=== PATIENT | female | born 1980 | race Caucasian/White ===

== ENCOUNTER 2018-10-25 06:58 | Emergency (ER) | payer SELFPAY ==
[2018-10-25 07:13] VITALS: BP 130/76; PULSE 69; RESP 18; TEMP 37.4; O2SAT 100
--- NOTE | 2018-10-25 07:29 | PC.NURSE ---
Pt pinched what she thought was a pimple on her chin/lower lip and then her lip began to swell up since Thursday. She denies difficulty swallowing, she is able to speak without problems but it is so painful to touch that Ibuprofen and ice aren't helping. She has also noticed something on her lower left eye.
--- NOTE | 2018-10-25 07:41 | ED.SKABFB ---
HPI - Skin/Abscess/Foreign Bdy General Chief complaint: Skin/Abscess/Foreign Body Stated complaint: swelling in lip/eye right side of face Time Seen by Provider: 10/25/18 07:31 Source: patient Mode of arrival: ambulatory Limitations: no limitations History of Present Illness HPI narrative: Patient comes emergency department complaining swelling her right lower lip since popping a pimple 3 days ago. Patient states she has had progressive swelling of her lower lip, but that this morning, she woke up to find that the lip was drastically more swollen and tense. Patient denies any fevers or chills. She states that she does not have any bad teeth that she knows of. No injury. No history of allergies or anaphylaxis. No history of angioedema. Patient states that the pimple area has been draining a little bit as the swelling has increased. Patient denies any other medical problems. She is not a diabetic. No other complaints at this time. Patient states that she does not feel any swelling in her tongue or throat. Related Data Home Medications Medication Instructions Recorded Confirmed ibuprofen 600 mg PO Q6H PRN 10/25/18 10/25/18 Previous Rx's Medication Instructions Recorded hydrocodone-acetaminophen 1 tab PO Q4-6H PRN #10 tab 10/25/18 sulfamethoxazole-trimethoprim 1 tab PO BID #14 tab 10/25/18 [Bactrim DS] Allergies Allergy/AdvReac Type Severity Reaction Status Date / Time No Known Drug Allergies Allergy Verified 10/25/18 07:34 Review of Systems Constitutional Denies chills, Denies fever(s), Denies lethargy and Denies weakness Eyes Denies change in vision, Denies eye discharge, Denies irritation and Denies loss of vision ENT Ears, Nose, Mouth, and Throat: Denies change in voice, Reports lip swelling, Denies neck pain and Denies sore throat Cardiovascular Denies chest pain, Denies irregular heart rhythm, Denies lightheadedness, Denies palpitations, Denies dyspnea, Denies dyspnea on exertion and Denies orthopnea Respiratory Denies cough, Denies dyspnea, Denies dyspnea on exertion and Denies wheezing Gastrointestinal Gastrointestinal: Denies abdominal pain, Denies change in bowel habits, Denies diarrhea, Denies nausea and Denies vomiting Genitourinary Denies hematuria, Denies flank pain, Denies urinary incontinence and Denies urinary urgency Musculoskeletal Denies neck pain Integumentary/Breasts Denies pruritus, Denies erythema, Denies rash and Denies wounds Neurologic Denies confusion, Denies loss of vision and Denies weakness Psychiatric Denies anxiety, Denies confusion, Denies depression, Denies homicidal ideation and Denies suicidal ideation Endocrine Denies palpitations Hematologic/Lymphatic Denies easy bruising Allergic/Immunologic Reports lip swelling and Denies wheezing [facility] Medical History Healthy adult (Acute) Surgical History No pertinent past surgical history (Acute) Social History Smoking Status: Current every day smoker Social History Smoking Status: Current every day smoker Exam Narrative Exam Narrative: Oral exam: Patient's right lower lip is severely edematous with induration and tension of the lip. 3 mm lesion is noted at the vermilion border of the right lower lip, which appears moist, but not actively draining. No focus of fluctuance is noted. Patient has moderate edema extending along the anterior portion of her mandibular body, adjacent to the immediate area of swelling and induration. This area is soft. No facial erythema. There is mild edema of the patient's right face extending up to the lower eyelid. Initial Vital Signs Initial Vital Signs: Vital Signs Temperature 99.3 F 10/25/18 07:13 Pulse Rate 69 10/25/18 07:13 Respiratory Rate 18 10/25/18 07:13 Blood Pressure 130/76 10/25/18 07:13 Pulse Oximetry 100 10/25/18 07:13 Const General: cooperative and well developed Nutritional Appearance: well nourished Orientation: alert, awake, oriented x3 and not confused [facility] Head: normocephalic and atraumatic Ears: external ears normal Nose: external nose normal and No nasal discharge Face and sinus: sinuses nontender and No dry mucous membranes Mouth: oral mucosae normal, moist mucous membranes and lip abnormal (See above.) Teeth and gingiva: dentition normal Throat: tonsils normal and uvula midline Eyes General: appearance normal, both eyes and all related structures Eyelids: eyelids normal Conjunctivae: conjunctivae normal Sclera: sclerae normal Pupils: PERRL EOM: EOM intact bilaterally Neck Neck: normal visual inspection, trachea midline, No lymphadenopathy, No midline deformity and No JVD Lymphatic: No lymphedema Chest Chest: normal inspection of the chest Resp Effort & Inspection: normal respiratory effort, able to speak in complete sentences, no respiratory distress and no use of accessory muscles Back/Spine/Pelvis Cervical Spine: cervical ROM normal Skin General: No erythema, No jaundice and No petechiae Lesions: lesion noted (Right lower lip, as above.) Neuro General: alert, awake, oriented x3, gait normal and no focal motor deficits Speech: speech normal Extrem General: full ROM Psych Appearance: well kempt Mental Status: mental status grossly normal Attitude: cooperative Thought Content: normal and suicidality Judgment: judgment good Course Course Narrative: Patient was given a dose of Bactrim. I ordered an ultrasound to evaluate for possible abscess in her lip. This was done and showed diffuse fluid which could possibly be abscess, but without a distinct cavity. As such, I ordered a CT of the face with contrast to further evaluate this. This was read by the radiologist as looking most like cellulitis with possible early abscess or phlegmon. At this point in time, I did not feel that I and D would be helpful, as there is not a distinct cavity to incise. However, I did speak with Dr. Medley, who is on-call for ENT, as I felt this patient should have some follow-up in an expedited fashion, and Dr. medley stated that the patient could be seen in the ENT clinic here in town either tomorrow or the next day. He did agree with Bactrim for antibiotic coverage, and so patient was given a prescription for this. She was advised of the need to follow up in ENT clinic. She was instructed to call as soon as possible today to set up a follow-up appointment. We have also discussed the usual indications for return. Orders Ordered: ED Orders 10/25/18 07:52 US soft tissue head and neck Stat 10/25/18 09:13 CT facial bones w con Stat Discontinued Medications Hydromorphone HCl (Dilaudid) 0.5 mg IV NOW ONE Stop: 10/25/18 09:11 Last Admin: 10/25/18 09:14 Dose: 0.5 mg Ketorolac Tromethamine (Toradol) 30 mg IV NOW ONE Stop: 08/12/19 08:20 Last Admin: 10/25/18 08:24 Dose: 30 mg Trimethoprim/Sulfamethoxazole (Bactrim Ds) 1 tab PO NOW ONE Stop: 10/25/18 07:54 Last Admin: 10/25/18 08:24 Dose: 1 tab Vital Signs - 8 hr 10/25/18 07:13 10/25/18 10:14 Temperature 99.3 F Pulse Rate 69 53 L Respiratory Rate 18 14 Blood Pressure 130/76 Blood Pressure [Left Arm] 105/49 L Pulse Oximetry 100 97 MDM - Skin/Abscess/Foreign Bdy Medical Records Attestation: I reviewed the patient's medical records. Imaging Data CT face: Radiologist's impression: PROCEDURE: CT FACIAL BONES W CON INDICATIONS: lip abscess TECHNIQUE: After the administration of intravenous contrast, 2.5 mm axial sections acquired from the mid-neck to the frontal sinuses, with coronal and sagittal reformats. For radiation dose reduction, the following was used: automated exposure control, adjustment of mA and/or kV according to patient size. COMPARISON: [facility], , US SOFT TISSUE HEAD AND NECK, 10/25/2018, 7:57. FINDINGS: Image quality: Excellent. Soft tissues: Soft tissue swelling/inflammation involving the lower lip and the anterior/right sofia-mandibular facial soft tissues noted which given patient's history is likely related to infectious cellulitis. Area of low density which is contiguous, irregular peripheral enhancement measuring 1.4 x 1.3 cm is noted in the central and right paramedian lower lip which may represent inflammatory phlegmon/developing abscess. No discrete fluid collection identified in the area of soft tissue swelling/inflammation. 1.1 cm left level I lymph node is noted. Vascular: Visualized vascular structures appear patent throughout. Bony vascular foramina and canals appear normal. Bones: Facial bones appear intact, without fractures, erosions, or destruction. Visualized portions of the skull base and auditory canals also appear normal. Sinuses: Paranasal sinuses are aerated without fluid levels, mucosal thickening, or mucoceles. Mastoid air cells are aerated. IMPRESSION: 1. Lower lip and anterior/right jaw facial soft tissue swelling/inflammation most compatible with infectious cellulitis. 2. Small low density area measuring 1.4 x 1.3 cm in the central right paramedian lower lip may represent inflammatory phlegmon versus developing abscess. 3. No well-formed, drainable abscess identified. 4. Left level I lymph adenopathy likely reactive. Dictated by: Sarah Sullivan MD, PhD on 10/25/2018 at 9:34 Approved by: Sarah Sullivan MD, PhD on 10/25/2018 at 9:40 Ultrasound lip: Radiologist's impression: PROCEDURE: US SOFT TISSUE HEAD AND NECK INDICATIONS: LOWER LIP ABSCESS TECHNIQUE: Real-time scanning was performed of the facial region of interest, in the region of the lower lip, with image documentation. COMPARISON: None. FINDINGS: There is increased vascularity to the region. There is likely a combination of phlegmon and abscess which measures approximately 1.5 x 2.2 cm. IMPRESSION: Cellulitis, probably phlegmon, and abscess, involving the subcutaneous structures of the lower lip region. Comment: CT to follow. Dictated by: Mejia Lopez M.D. on 10/25/2018 at 8:36 Approved by: Mejia Lopez M.D. on 10/25/2018 at 8:39 Discharge Plan Departure Patient Disposition: Home Clinical Impression: Cellulitis of lip Discharge Date/Time: 10/25/18 10:20 Interventions: ED Discharge Assessment Last Done: 10/25/18 10:18 Instructions: DI for Cellulitis -- Adult Activity Restrictions/Additional Instructions: Your ultrasound and CT scan did not show a distinct abscess, or pus collection. However, it is possible that your in the early stages of formation of one, and as such, your case has been discussed with the on-call ENT specialist. They have recommended that we continue the antibiotics that have been started in the emergency department. They would like to see you in their clinic in [place] either tomorrow or the next day for follow-up. Do not squeeze the pimple area anymore. You may apply hot packs to the area to encourage drainage of any pus or fluid that may want to accumulate. If you began to have worsening swelling of the lips, or if you notice any tightness in your throat or tongue, please return to the emergency department. You should call the ENT clinic as soon as you can today. Tell them you were seen in the emergency department and that your case was discussed with Dr. Medley, who would like to have you seen tomorrow or the next day in clinic. Prescriptions: New hydrocodone-acetaminophen 5-325 mg tablet 1 tab PO Q4-6H PRN (Reason: pain) Qty: 10 RF: 0 sulfamethoxazole-trimethoprim [Bactrim DS] 800-160 mg tablet 1 tab PO BID Qty: 14 RF: 0 No Action ibuprofen 200 mg Capsule 600 mg PO Q6H PRN (Reason: Pain (Scale Score 7-10)) RF: 0 Referrals: Clem Guthrie MD [Physician] -
--- NOTE | 2018-10-25 07:52 | DI.US.S_ITS ---
PROCEDURE: US SOFT TISSUE HEAD AND NECK INDICATIONS: LOWER LIP ABSCESS TECHNIQUE: Real-time scanning was performed of the facial region of interest, in the region of the lower lip, with image documentation. COMPARISON: None. FINDINGS: There is increased vascularity to the region. There is likely a combination of phlegmon and abscess which measures approximately 1.5 x 2.2 cm. IMPRESSION: Cellulitis, probably phlegmon, and abscess, involving the subcutaneous structures of the lower lip region. Comment: CT to follow. Dictated by: Mejia Lopez M.D. on 10/25/2018 at 8:36 Approved by: Mejia Lopez M.D. on 10/25/2018 at 8:39
[2018-10-25] MEDS: KETOROLAC 60 MG/2 ML VIAL 30 MG IV (08:24)
[2018-10-25] MEDS: TRIMETH/SULFA 160/800 (DS) TABLET 1 TAB PO (08:24)
--- NOTE | 2018-10-25 09:13 | DI.CT.S_ITS ---
PROCEDURE: CT FACIAL BONES W CON INDICATIONS: lip abscess TECHNIQUE: After the administration of intravenous contrast, 2.5 mm axial sections acquired from the mid-neck to the frontal sinuses, with coronal and sagittal reformats. For radiation dose reduction, the following was used: automated exposure control, adjustment of mA and/or kV according to patient size. COMPARISON: [facility], , US SOFT TISSUE HEAD AND NECK, 10/25/2018, 7:57. FINDINGS: Image quality: Excellent. Soft tissues: Soft tissue swelling/inflammation involving the lower lip and the anterior/right sofia-mandibular facial soft tissues noted which given patient's history is likely related to infectious cellulitis. Area of low density which is contiguous, irregular peripheral enhancement measuring 1.4 x 1.3 cm is noted in the central and right paramedian lower lip which may represent inflammatory phlegmon/developing abscess. No discrete fluid collection identified in the area of soft tissue swelling/inflammation. 1.1 cm left level I lymph node is noted. Vascular: Visualized vascular structures appear patent throughout. Bony vascular foramina and canals appear normal. Bones: Facial bones appear intact, without fractures, erosions, or destruction. Visualized portions of the skull base and auditory canals also appear normal. Sinuses: Paranasal sinuses are aerated without fluid levels, mucosal thickening, or mucoceles. Mastoid air cells are aerated. IMPRESSION: 1. Lower lip and anterior/right jaw facial soft tissue swelling/inflammation most compatible with infectious cellulitis. 2. Small low density area measuring 1.4 x 1.3 cm in the central right paramedian lower lip may represent inflammatory phlegmon versus developing abscess. 3. No well-formed, drainable abscess identified. 4. Left level I lymph adenopathy likely reactive. Dictated by: Sarah Sullivan MD, PhD on 10/25/2018 at 9:34 Approved by: Sarah Sullivan MD, PhD on 10/25/2018 at 9:40
[2018-10-25] MEDS: HYDROMORPHONE 0.5 MG INJ IV (09:14)
[2018-10-25 10:14] VITALS: BP 105/49; PULSE 53; RESP 14; O2SAT 97
== END 2018-10-25 10:20 | disposition home or self-care (01) ==
PROVIDERS: Emergency Provider Emergency Medicine
DX: K13.0 Diseases of lips (principal)
CPT/HCPCS: 70487; 76536; 96374; 96375; 99282; 99285; J1170; J1885; Q9967

== ENCOUNTER 2018-10-27 07:59 | Emergency (ER) | payer SELFPAY ==
[2018-10-27 08:02] VITALS: BP 121/59; PULSE 89; RESP 16; TEMP 37.7; O2SAT 100; BMI 17.2
--- NOTE | 2018-10-27 08:09 | ED_ITS ---
HPI - Wound/Laceration General Chief Complaint: Wound/Laceration Stated Complaint: Abcess on lip Time Seen by Provider: 10/27/18 08:05 Source: patient and old records reviewed Mode of arrival: EMS Limitations: no limitations History of Present Illness HPI narrative: Patient is a 37-year-old female presenting with lip abscess. She says it started when she popped a pimple 5 days ago and she started noticing that her lip was swelling. She was seen evaluated here on 10/25/2018. She had a CT of her lip and an ultrasound. She was started on Bactrim and given hydrocodone. She says it has grown more. She has swelling up into the right side of her face as well. She is able to swallow. She does not have for. Onset (ago): day(s) (5) Location: face (Lower lip) Related Data Home Medications Medication Instructions Recorded Confirmed ibuprofen 600 mg PO Q6H PRN 10/25/18 10/27/18 Previous Rx's Medication Instructions Recorded hydrocodone-acetaminophen 1 tab PO Q4-6H PRN #10 tab 10/25/18 sulfamethoxazole-trimethoprim 1 tab PO BID #14 tab 10/25/18 [Bactrim DS] erythromycin 0.5 inch EYE-RIGHT Q4HRWA 7 Days 10/27/18 #3.5 gram mupirocin 1 applictn TOP BID #15 gram 10/27/18 Allergies Allergy/AdvReac Type Severity Reaction Status Date / Time No Known Drug Allergies Allergy Verified 10/27/18 08:02 Review of Systems Review of Systems ROS Unobtainable: All systems reviewed & are unremarkable except as noted in HPI and below Constitutional Denies chills, Denies fever(s), Denies lethargy and Denies weakness Eyes Denies change in vision, Denies eye discharge, Denies irritation and Denies loss of vision ENT Ears, Nose, Mouth, and Throat: Reports as per HPI Cardiovascular Denies chest pain, Denies irregular heart rhythm, Denies lightheadedness, Denies palpitations and Denies orthopnea Musculoskeletal Denies back pain, Denies muscle weakness, Denies numbness and Denies tingling Integumentary/Breasts Reports as per HPI Neurologic Denies loss of vision, Denies numbness, Denies tingling and Denies weakness Endocrine Denies palpitations [facility] Medical History Healthy adult (Acute) Surgical History No pertinent past surgical history (Acute) Social History Smoking Status: Current every day smoker Social History Smoking Status: Current every day smoker Exam Initial Vital Signs Initial Vital Signs: Vital Signs Temperature 99.9 F H 10/27/18 08:02 Pulse Rate 89 10/27/18 08:02 Respiratory Rate 16 10/27/18 08:02 Blood Pressure 121/59 L 10/27/18 08:02 Pulse Oximetry 100 10/27/18 08:02 GENERAL: Well-appearing, well-nourished and in no acute distress. HEENT: Head atraumatic lower lip significant swelling and scabbing of lower lip more on the right side. She does have some mild swelling on right face but not significant just inferior the right eye some mild redness. EOMI. CARDIOVASCULAR: Regular rate and rhythm without murmurs, rubs or gallops. RESPIRATORY: Breath sounds equal bilaterally, no wheezes rales or rhonchi. ABDOMEN: Soft, nontender. Normoactive bowel sounds all 4 quadrants. No guarding or rebound. EXTREMITIES: Normal range of motion, no clubbing or edema. Neurovascularly intact NEUROLOGICAL: Alert and oriented x4.Normal gait and speech. SKIN: Warm, dry, no laceration, no petechiae, no rashes or lesions. Course Orders Ordered: ED Orders 10/27/18 08:08 Basic Metabolic Panel Stat Complete Blood Count AUTO DIFF Stat Lactate (Lactic Acid) Stat 10/27/18 12:38 Wound Culture and Gram Stain Stat Discontinued Medications Bacitracin (Bacitracin) 1 applic TOP NOW ONE Stop: 10/27/18 14:14 Last Admin: 10/27/18 14:23 Dose: 1 applic Dexamethasone (Decadron) 10 mg IV NOW ONE Stop: 10/27/18 08:19 Last Admin: 10/27/18 08:21 Dose: 10 mg Hydromorphone HCl (Dilaudid) 0.5 mg IV NOW ONE Stop: 10/27/18 08:11 Last Admin: 10/27/18 08:15 Dose: 0.5 mg Hydromorphone HCl (Dilaudid) 0.5 mg IV NOW ONE Stop: 10/27/18 13:51 Last Admin: 10/27/18 14:08 Dose: 0.5 mg Vancomycin HCl/Dextrose (Vancomycin) 750 mg in 150 mls @ 150 mls/hr IV NOW ONE Stop: 10/27/18 09:09 Last Admin: 10/27/18 09:41 Dose: Not Given Vancomycin HCl (Vancomycin) 1,000 mg in 200 mls @ 200 mls/hr IV NOW ONE Stop: 10/27/18 09:17 Last Infusion: 10/27/18 09:41 Dose: 0 mls/hr Admin: 10/27/18 08:31 Dose: 200 mls/hr Ketorolac Tromethamine (Toradol) 30 mg IV NOW ONE Stop: 10/27/18 13:05 Last Admin: 10/27/18 13:13 Dose: 30 mg Consultations Consultation #1: Dr. Guthrie ENT, agrees with drainage. Recommend Decadron. Can see patient at 11:00 a.m. in office Time: 08:16 Vital Signs - 8 hr 10/27/18 08:02 10/27/18 09:11 10/27/18 11:36 Temperature 99.9 F H 98.5 F Pulse Rate 89 75 79 Respiratory Rate 16 16 18 Blood Pressure 121/59 L Blood Pressure [Right Arm] 112/50 L 112/49 L Pulse Oximetry 100 97 10/27/18 13:46 10/27/18 14:00 Temperature Pulse Rate 79 73 Respiratory Rate 19 Blood Pressure Blood Pressure [Right Arm] 123/72 119/64 Pulse Oximetry 99 98 MDM - Wound/Laceration Lab Data Attestation: I reviewed the patient's lab results. Result diagrams: 10/27/18 08:08 10/27/18 08:08 Lab Results 10/27/18 10/27/18 10/27/18 Range/Units 08:08 08:08 08:08 WBC 15.2 H (4.5-11.0) X10^3/uL RBC 3.87 L (4.0-5.2) X10^6/uL Hgb 11.0 L (12.0-16.0) g/dL Hct 33.9 L (36-46) % MCV 87.6 (80-100) fL MCH 28.5 (26-34) PG MCHC 32.5 (30-36) % RDW 16.8 H (11.6-14.8) % Plt Count 186 (150-400) X10^3/uL Neut % (Auto) 90.6 H (50-75) % Lymph % (Auto) 3.0 L (25-40) % Randolph % (Auto) 5.9 (3-14) % Eos % (Auto) 0.2 L (2-4) % Baso % (Auto) 0.3 (0-2) % Neut # (Auto) 64474 H (4796-3572) /uL Lymph # (Auto) 500 L (9403-9872) /uL Randolph # (Auto) 900 (0-900) /uL Eos # (Auto) 0 (0-450) /uL Baso # (Auto) 0 (0-100) /uL Sodium 134 L (137-145) mmol/L Potassium 3.7 (3.4-5.1) mmol/L Chloride 96 L (98-107) mmol/L Carbon Dioxide 26 (22-32) mmol/L BUN 11 (7-17) mg/dL Creatinine 0.70 (0.52-1.04) mg/dL Estimated GFR > 60.0 (>60) mL/min BUN/Creatinine Ratio 15.7 (6-22) Glucose 122 H (70-100) mg/dL Lactate 0.9 (0.7-2.1) mmol/L Calcium 9.3 (8.4-10.2) mg/dL [facility] Narrative Medical decision making narrative: 12:05pm-Dr. Guthrie in ED to see evaluating and drain abscess. He was able to get significant amount of pus from lip. Recommends waiting until culture returns before changing antibiotic. Patient tolerated procedure really well. She is given antibiotic ointment for her eye. Discharge Plan Departure Patient Disposition: Home Clinical Impression: Abscess of lip Acute conjunctivitis, right eye Qualifiers: Acute conjunctivitis type: bacterial Qualified Code(s): H10.31 - Unspecified acute conjunctivitis, right eye Instructions: Conjunctivitis, DI for Skin Abscess Activity Restrictions/Additional Instructions: *YOU HAVE BEEN DIAGNOSED WITH conjunctivitis and lower lip abdomen *WHAT TO DO: At this time we will wait for culture of the lip to change antibiotics. Continue antibiotics for now *CONTINUE TO TAKE MEDICATIONS DIRECTED Continue Bactrim and pain medication as prescribed Erythromycin ointment every 4 hours while awake *FOLLOW UP WITH YOUR PRIMARY CARE PROVIDER IN 2-3 DAYS *RETURN TO ER IF YOU SHOULD HAVE increasing swelling, increasing pain, inability to swallow OR ANY NEW, WORSENING OR CONCERNING SYMPTOMS Prescriptions: New erythromycin 5 mg/gram (0.5 %) ointment 0.5 inch EYE-RIGHT Q4HRWA 7 Days Qty: 3.5 RF: 0 mupirocin 2 % ointment 1 applictn TOP BID Qty: 15 RF: 0 No Action ibuprofen 200 mg Capsule 600 mg PO Q6H PRN (Reason: Pain (Scale Score 7-10)) RF: 0 hydrocodone-acetaminophen 5-325 mg tablet 1 tab PO Q4-6H PRN (Reason: pain) Qty: 10 RF: 0 sulfamethoxazole-trimethoprim [Bactrim DS] 800-160 mg tablet 1 tab PO BID Qty: 14 RF: 0 Referrals: Clem Guthrie MD [Physician] -
--- NOTE | 2018-10-27 08:14 | PC.NURSE ---
Patient states she popped a pimple on her lip and then started developing pain and swelling to lower lip. Started on Oral Antibiotics on thursday. No improvement in pain, increase in swelling. Swelling is spreading from lower lip up into face and lower aspect of right eye. Two small sores noted to inside corner of right eye. Patient reports fevers at home. Pain with swallowing. Protecting airway able to handle secretions. Patient denies difficulty breathing. Reports pain in right ear.
[2018-10-27] MEDS: HYDROMORPHONE 0.5 MG INJ IV ×2 (08:15→14:08)
[2018-10-27 08:19] LABS: Add Manual Diff / Slide Review NO; Basophils Absolute Auto 0 /uL (0-100); Basophils Percent Auto 0.3 % (0-2); Eosinophils Absolute Auto 0 /uL (0-450); Eosinophils Percent Auto 0.2 % (2-4); Hematocrit 33.9 % (36-46); Lymphocytes Absolute Auto 500 /uL (1100-4500); Mean Corpuscular HGB Conc 32.5 % (30-36); Mean Corpuscular Hemoglobin 28.5 PG (26-34); Mean Corpuscular Volume 87.6 fL (80-100); Monocytes Absolute Auto 900 /uL (0-900); Monocytes Percent Auto 5.9 % (3-14); Neutrophils Absolute Auto 13800 /uL (1500-7000); Neutrophils Percent Auto 90.6 % (50-75); Platelet Count 186 X10^3/uL (150-400); Red Blood Cell Count 3.87 X10^6/uL (4.0-5.2); Red Cell Distribution Width 16.8 % (11.6-14.8); White Blood Cell Count 15.2 X10^3/uL (4.5-11.0)
[2018-10-27] MEDS: DEXAMETHASONE 10 MG/ML VIAL IV (08:21)
[2018-10-27 08:29] LABS: BUN Creatinine Ratio 15.7 (6-22); Blood Urea Nitrogen 11 mg/dL (7-17); Calcium 9.3 mg/dL (8.4-10.2); Carbon Dioxide 26 mmol/L (22-32); Chloride 96 mmol/L (98-107); Estimated Glomerular Filt Rate > 60.0 mL/min (>60); Glucose 122 mg/dL (70-100); HEMOLYSIS < 15 (0-50); Lactate (Lactic Acid) 0.9 mmol/L (0.7-2.1); Potassium 3.7 mmol/L (3.4-5.1); Sodium 134 mmol/L (137-145)
[2018-10-27] MEDS: VANCOMYCIN 1,000 MG/200 ML PIGGYBACK 200 MG IV (08:31)
[2018-10-27 09:11] VITALS: BP 112/50; PULSE 75; RESP 16
[2018-10-27 11:36] VITALS: BP 112/49; PULSE 79; RESP 18; TEMP 36.9; O2SAT 97
--- NOTE | 2018-10-27 12:14 | PC.NURSE ---
Dr Guthrie from ENT at bedside
[2018-10-27] MEDS: KETOROLAC 60 MG/2 ML VIAL 30 MG IV (13:13)
[2018-10-27 13:46] VITALS: BP 123/72; PULSE 79; RESP 19; O2SAT 99
[2018-10-27 14:00] VITALS: BP 119/64; PULSE 73; O2SAT 98
[2018-10-27] MEDS: BACITRACIN OINT 0.9 GM PCKT 1 APPLIC TOP (14:23)
--- NOTE | 2018-10-27 16:13 | PC.NURSE ---
Hospital assistance provided for patient to fill RX. Patient set up with phone call for assistance in obtaining medical insurance. Patient will be provided with a cab ride home as she was unable to get a ride by family or friend. Patient is working on a concrete plan to get her back to ENT for follow up appointment
[2018-10-27 16:15] VITALS: BP 110/78; PULSE 76; RESP 16; O2SAT 99
--- NOTE | 2018-10-27 19:03 | OP_ITS ---
DATE OF SERVICE: 10/27/2018 PREOPERATIVE DIAGNOSIS: Complex lip abscess, presumed methicillin-resistant Staphylococcus aureus (MRSA). POSTOPERATIVE DIAGNOSIS: Complex lip abscess, presumed methicillin-resistant Staphylococcus aureus (MRSA). PROCEDURE: Complex incision and drainage, extensive lower lip abscess. SURGEON: Clem Guthrie MD DESTINATION SIGN REPAIRER: None ANESTHESIA: Local. ESTIMATED BLOOD LOSS: Minimal. FINDINGS: Several cc's thick purulence expressed over 20 minutes, induration extending to the right buccal cheek, but abscess cavity primarily centered on the right lower lip. CULTURE: Taken. COMPLICATIONS: None. INDICATIONS: A 37-year-old female with a pimple noted of the lower lip near the rl border a few days ago, progressed after she attempted to pop it. Despite oral Bactrim, swelling worsened and she presented to the emergency room via ambulance due to financial concerns, evidently. I was asked to consult for incision and drainage. DESCRIPTION OF PROCEDURE: Following identification and verbal consent, I cleansed the lip with alcohol and widely infiltrated 2% lidocaine, 1:100,000 epinephrine. Following Betadine prep, a 15-blade incised over the initial lesion centered on the central rl border. I opened the area and probed numerous loculations and expelled several milliliters of pus. I irrigated the wound with Betadine and sutured a 1/4-inch [place] in place. She tolerated the procedure well although was sore as the local anesthetic began to wear off. POSTOPERATIVE CARE: As discussed with the patient and Dr. Rosales. She will use Bactroban to cover the lip at all times, continue the Bactrim until culture results are known. Call with progress tomorrow. Otherwise, follow up in my office in 2 days for possible drain removal, wound check. The patient agrees to the plan, understands, and was appreciative. Nerissa Peres - ROBIN/mike/rick doc#: [id number]/job#: [id number] dd: 10/27/2018 13:14:00 dt: 10/27/2018 18:56:00 DICTATING /COPIES TO: Clem Guthrie MD COPIES MNE: RUFINA
== END 2018-10-27 16:16 | disposition home or self-care (01) ==
PROVIDERS: Emergency Provider Emergency Medicine
DX: K13.0 Diseases of lips (principal); H10.31 Unspecified acute conjunctivitis, right eye
CPT/HCPCS: 36591; 80048; 83605; 85025; 87070; 87077; 87147; 87186; 87205; 96365; 96375; 96376; 99284; J1100; J1170; J1885

== ENCOUNTER 2018-10-29 06:41 | Emergency (ER) | payer SELFPAY ==
--- NOTE | 2018-10-29 06:46 | DI.RAD.S_ITS ---
PROCEDURE: XR RIBS RT MIN 3V W CXR 1V INDICATIONS: pain, heard a pop TECHNIQUE: 3 views of the right ribs were acquired, along with a single view chest. COMPARISON: None. FINDINGS: Surgical changes and devices: None. Bones and chest wall: No fractures or dislocations. No suspicious bony lesions. Overlying soft tissues appear unremarkable. Lungs and pleura: No pleural effusions or pneumothorax. Lungs appear clear. Mediastinum: Mediastinal contours appear normal. Heart size is normal. IMPRESSION: No displaced rib fracture. Dictated by: Sarah Sullivan MD, PhD on 10/29/2018 at 8:17 Approved by: Sarah Sullivan MD, PhD on 10/29/2018 at 8:18
[2018-10-29 06:48] VITALS: BP 118/65; PULSE 72; RESP 18; TEMP 37.1; O2SAT 100
--- NOTE | 2018-10-29 07:04 | PC.NURSE ---
Pt reports pain to right rib area, felt a pop when going to bed and tender to touch or taking deep breath. LS clear bi lat.
--- NOTE | 2018-10-29 07:10 | ED_ITS ---
HPI - Back Pain/Injury General Chief Complaint: Back Pain/Injury Stated Complaint: right side/every time she breaths/moves it hurts Time Seen by Provider: 10/29/18 06:43 Source: patient Mode of arrival: ambulatory Limitations: no limitations History of Present Illness HPI Narrative: 37-year-old female here for evaluation of right-sided rib pain. Patient states that overnight she rolled over and heard a ?pop? since then she has had pain on her right side and difficulty with breathing and palpation and movement. Never had anything like this before. She has been seen several times in the past few days in this emergency department for an infection of her lip. She is not here for this particular reason it is for right-sided rib pain. Related Data Home Medications Medication Instructions Recorded Confirmed ibuprofen 600 mg PO Q6H PRN 10/25/18 10/27/18 Previous Rx's Medication Instructions Recorded hydrocodone-acetaminophen 1 tab PO Q4-6H PRN #10 tab 10/25/18 sulfamethoxazole-trimethoprim 1 tab PO BID #14 tab 10/25/18 [Bactrim DS] erythromycin 0.5 inch EYE-RIGHT Q4HRWA 7 Days 10/27/18 #3.5 gram mupirocin 1 applictn TOP BID #15 gram 10/27/18 hydrocodone-acetaminophen [[place]] 1 tab PO Q4-6H PRN #10 tab 10/29/18 ibuprofen 600 mg PO Q6H PRN #60 tab 10/29/18 Allergies Allergy/AdvReac Type Severity Reaction Status Date / Time No Known Drug Allergies Allergy Verified 10/27/18 08:02 Review of Systems Constitutional Denies fever(s) Cardiovascular Reports chest pain (Right-sided chest wall pain) Comments: Pain on inspiration Respiratory Reports pain on inspiration Gastrointestinal Gastrointestinal: Denies abdominal pain, Denies nausea and Denies vomiting Integumentary/Breasts Denies rash Neurologic Denies behavioral changes Psychiatric Denies behavioral changes [facility] Medical History Healthy adult (Acute) Social History Smoking Status: Current every day smoker Exam Initial Vital Signs Initial Vital Signs: Vital Signs Temperature 98.8 F 10/29/18 06:48 Pulse Rate 72 10/29/18 06:48 Respiratory Rate 18 10/29/18 06:48 Blood Pressure 118/65 10/29/18 06:48 Pulse Oximetry 100 10/29/18 06:48 Const General: cooperative, well developed and well groomed HENMT Mouth: lip abnormal (Right-sided lip abscess currently under treatment) Resp Effort & Inspection: normal respiratory effort Cardio Rate: regular rate Skin Other: No rashes or lesions on the right side chest wall Neuro General: alert and awake Extrem General: normal to inspection and capillary refill normal Course Orders Ordered: ED Orders 10/29/18 06:46 XR ribs RT min 3V w CXR1V Stat Vital Signs - 8 hr 10/29/18 06:48 Temperature 98.8 F Pulse Rate 72 Respiratory Rate 18 Blood Pressure 118/65 Pulse Oximetry 100 MDM - Back Pain/Injury Imaging Data X-ray rib series: Attestation: I personally reviewed and interpreted this imaging study as follows: My impression: No fractures or dislocations MDM Narrative Medical decision making narrative: Patient not in any respiratory distress. Her lip issue which she has been seen for in the past here in the emergency department and not the reason that she is here today is healing well. She does have an appointment later today with the [facility] providers. Her right-sided chest wall pain shows no fractures on the x-rays. No skin changes consistent with zoster. She does have fairly localized tenderness to palpation on the right lower ribs on the lateral aspect. I do suspect musculoskeletal. It could potentially be costochondritis or intercostal rib spasms. Will send home on anti-inflammatories. She ran out of pain medications last evening so I will refill very short course of this. No further workup needed here in the ER. She was given return precautions and follow-up instructions. She expressed understanding and agreement with plan. Discharge Plan Departure Patient Disposition: Home Clinical Impression: Right-sided chest wall pain Instructions: DI for Costochondritis Activity Restrictions/Additional Instructions: There were no signs of fractures on the x-ray. Take the medications as directed. Keep all of your scheduled medical appointments of specially with the Ear Nose and Throat doctors. Return to the emergency department for any new or worsening symptoms Prescriptions: New hydrocodone-acetaminophen [[place]] 5-325 mg tablet 1 tab PO Q4-6H PRN (Reason: pain) Qty: 10 RF: 0 ibuprofen 600 mg tablet 600 mg PO Q6H PRN (Reason: pain) Qty: 60 RF: 0 No Action ibuprofen 200 mg Capsule 600 mg PO Q6H PRN (Reason: Pain (Scale Score 7-10)) RF: 0 hydrocodone-acetaminophen 5-325 mg tablet 1 tab PO Q4-6H PRN (Reason: pain) Qty: 10 RF: 0 sulfamethoxazole-trimethoprim [Bactrim DS] 800-160 mg tablet 1 tab PO BID Qty: 14 RF: 0 erythromycin 5 mg/gram (0.5 %) ointment 0.5 inch EYE-RIGHT Q4HRWA 7 Days Qty: 3.5 RF: 0 mupirocin 2 % ointment 1 applictn TOP BID Qty: 15 RF: 0
[2018-10-29 07:36] VITALS: PULSE 66; RESP 16; O2SAT 99
[2018-10-29 07:41] VITALS: BP 116/50; PULSE 73; RESP 19; O2SAT 99
== END 2018-10-29 07:41 | disposition home or self-care (01) ==
PROVIDERS: Emergency Provider Emergency Medicine
DX: R07.89 Other chest pain (principal)
CPT/HCPCS: 71101; 99283